=== PATIENT | female | born 1975 | race Caucasian/White ===

== ENCOUNTER 2017-07-30 20:24 | Emergency (ER) | payer BC, SELFPAY ==
[2017-07-30 20:24] VITALS: BP 129/89; PULSE 69; RESP 16; TEMP 36.8; O2SAT 100; BMI 25.8
--- NOTE | 2017-07-30 20:39 | ED.DCSUM_ITS ---
- ER Visit Summary Date of Service: 07/30/17 Chief Complaint: Dizziness History of Present Illness: The patient is a 41 F Zentz to the emergency department with dizziness. Patient states she has a remote history of vertigo. She states it happened about 3 years ago. She underwent significant outpatient testing including ENT evaluation and MRI. She had physical therapy and it seemed to resolve. Today, she bent over to lift a box. She states that she stood up quickly and got acutely dizzy. She describes it as vertiginous type dizziness. She states that she felt like she was going to pass out. She states she began to breathe quickly and began have tingling in her hands. She states the tingling went away, but she has been intermittently dizzy throughout the day. She said a few bouts of vomiting. She denies any trouble with speech or swallowing. She denies any change in gait. She denies any focal weakness. Physical Examination: Vital signs reviewed General: Well-nourished, well-developed Head: Normocephalic, atraumatic Eyes: Pupils equal and reactive, extraocular muscles intact Neck, supple, no lymphadenopathy Heart: Regular rate and rhythm Respiratory: No distress, clear bilaterally Abdomen: Soft, nontender, nondistended, no peritoneal signs Back: Nontender Extremities: Nontender, no edema, no cords Skin: Normal color no rash Neuro: Alert and oriented, no focal or lateralizing deficits Test Results: [] Emergency Department Course and Treatment: The patient has an examination that does seem consistent with a peripheral vertigo. She has a positive head impulse testing. She has rapid right beating nystagmus when looking to the extreme left. Her symptoms are preceded with rapid motion. She has a normal neurologic exam. She has no neck pain, history of connective tissue disorder, or recent trauma. I do not feel this represents a vertebral artery or basilar artery dissection. The patient states that she did well with physical therapy, but stopped going. She has had intermittent symptoms for the past 2 years. They seem to be acutely worsened today. The patient was treated with IV fluids , antiemetics, and Ativan with some improvement. I did obtain screening labs which were unremarkable. I do feel that this patient would benefit from outpatient ENT evaluation given her persistence of symptoms. She will be placed on a prednisone burst and meclizine. She will also be given antiemetics. She will be discharged home. Treatment Plan: [] Disposition: Discharge Impression: 1. Peripheral vertigo This note was generated with [employer] dictation software. It may contain incorrect words, spelling, and punctuation that were not noted in review of the chart prior to signing ED Disposition - Plan for ED Patient: Chief Complaint: Dizziness Instructions: ED BPV Vertigo Prescriptions: Ondansetron [Zofran Odt] 4 mg PO Q8H PRN PRN #10 tab PRN Reason: Nausea Meclizine HCl [Antivert] 25 mg PO TID PRN PRN #30 tab PRN Reason: Vertigo Prednisone 10 mg PO UD #33 tab Referrals: Da Peralta MD [STAFF PHYSICIAN] -
[2017-07-30] MEDS: Ondansetron 4 MG/2 ML Vial IV (20:44)
[2017-07-30] MEDS: 0.9% Normal Saline 1,000 ML 1000 ML IV (20:44)
[2017-07-30] MEDS: LORazepam 2 MG/ML Syringe 1 MG IV (20:45)
[2017-07-30 20:58] LABS: Absolute Lymphocyte Count 1.03 X10^3/ul (0.83-4.51); Basophil# 0.01 X10^3/uL; Basophil% 0.2 % (0-1); Eosinophil# 0.05 X10^3/uL; Eosinophils% 1.1 % (0-5); Hemoglobin 12.5 g/dl (12.0-15.0); Lymphocyte # 1.03 X10^3/ul (4.0); Lymphocyte % 23.1 % (19-41); Mean Corp Hgb Conc 32.9 g/gl (32-36); Mean Platelet Vol. 11.2 fl (6.2-12.0); Monocyte# 0.33 X10^3/uL; Monocyte% 7.4 % (0-10); Neutrophil # 3.04 X10^3/uL (2.7-7.7); Neutrophil % 68.2 % (47-70); Platelet Count 181 K/mm3 (150-450); RBC Distribution Width CV 13.4 % (11.6-14.6); RBC Distribution Width SD 41.9 fl (35.1-43.9); Red Blood Count 4.47 M/mm3 (4.2-5.4); White Blood Count 4.5 K/mm3 (4.4-11.0)
[2017-07-30 21:03] LABS: POSITIVE COUNT NO; POSITIVE DIFFERENTIAL NO; POSITIVE MORPHOLOGY NO
[2017-07-30 21:22] LABS: Anion Gap 9 (5-15); BUN 8 mg/dL (7-18); BUN/Creat Ratio 11.1 RATIO (10-20); Calcium,Total 8.4 mg/dL (8.5-10.1); Chloride 106 mmol/L (98-107); Creatinine, Serum 0.72 mg/dL (0.55-1.02); EST Glomerular Filtration Rate 93 mL/min (>60); Est Glom Filt Rate - Afr Amer 113 mL/min (>60); Estimated Creatinine Clearance 94.31 ml/min; Glucose 110 mg/dL (74-106); Potassium 3.6 mmol/L (3.5-5.1); Sodium Level 142 mmol/L (136-145)
[2017-07-30] MEDS: Meclizine 12.5 MG Tablet 25 MG PO (22:11)
[2017-07-30] MEDS: MethylPREDNISolone 125 MG/2 ML Vial IV (22:11)
[2017-07-30 22:17] VITALS: BP 103/61; PULSE 59; RESP 16; O2SAT 100
== END 2017-07-30 22:18 | disposition home or self-care (01) ==
LOC: ED 20:39
PROVIDERS: Emergency Provider Emergency Medicine
DX: H81.399 Other peripheral vertigo, unspecified ear (principal)
CPT/HCPCS: 80048; 85025; 96361; 96374; 96375; 99283; J2405

== ENCOUNTER 2017-10-22 16:48 | Emergency (ER) | payer BC, SELFPAY ==
[2017-10-22 16:49] VITALS: BP 136/71; PULSE 70; RESP 16; TEMP 36.1; O2SAT 99; BMI 26.8
--- NOTE | 2017-10-22 16:51 | EKG12_ITS ---
Test Reason : DIZZY Blood Pressure : / mmHG Vent. Rate : 078 BPM Atrial Rate : 078 BPM P-R Int : 164 ms QRS Dur : 114 ms QT Int : 418 ms P-R-T Axes : 057 035 046 degrees QTc Int : 476 ms Normal sinus rhythm Normal ECG Confirmed by KRIS SANTIZO, TYLER ([id number]), development editor BIBI MATTHEWS ([id number]) on 10/24/2017 1:54:48 PM Referred By: DC Confirmed By:TYLER PONCE MD
--- NOTE | 2017-10-22 17:18 | NURSING ---
NO OLD EKGS
[2017-10-22 17:47] LABS: Absolute Neutrophil Count 2.4 X10^3/uL (2.0-7.7); Basophil# 0.02 X10^3/uL; Basophil% 0.5 % (0-1); Eosinophil# 0.05 X10^3/uL; Eosinophils% 1.4 % (0-5); Hematocrit 35.9 % (37-47); Lymphocyte % 24.3 % (19-41); Mean Corp Hgb Conc 33.4 g/gl (32-36); Mean Corpuscular Hgb 28.6 pg (27.0-32.0); Mean Corpuscular Volume 85.5 fL (81-99); Mean Platelet Vol. 10.9 fl (6.2-12.0); Monocyte# 0.34 X10^3/uL; Monocyte% 9.2 % (0-10); Neutrophil # 2.39 X10^3/uL (2.7-7.7); Neutrophil % 64.6 % (47-70); Platelet Count 190 K/mm3 (150-450); RBC Distribution Width CV 13.4 % (11.6-14.6); RBC Distribution Width SD 41.7 fl (35.1-43.9); White Blood Count 3.7 K/mm3 (4.4-11.0)
[2017-10-22 17:50] LABS: POSITIVE COUNT NO; POSITIVE DIFFERENTIAL NO; POSITIVE MORPHOLOGY NO
[2017-10-22 17:57] LABS: Anion Gap 6 (5-15); BUN 13 mg/dL (7-18); BUN/Creat Ratio 17.8 RATIO (10-20); Calcium,Total 8.9 mg/dL (8.5-10.1); Chloride 101 mmol/L (98-107); Creatinine, Serum 0.73 mg/dL (0.55-1.02); EST Glomerular Filtration Rate 92 mL/min (>60); Est Glom Filt Rate - Afr Amer 112 mL/min (>60); Estimated Creatinine Clearance 93.02 ml/min; Glucose 99 mg/dL (74-106); Potassium 3.6 mmol/L (3.5-5.1); Sodium Level 138 mmol/L (136-145)
[2017-10-22 18:03] LABS: International Normalized Ratio 1.1; Prothrombin Time (Protime)PT. 13.8 SECONDS (11.7-14.9)
[2017-10-22 18:04] LABS: Partial Thromboplast Time 28.3 Seconds (24.1-36.2)
--- NOTE | 2017-10-22 19:03 | ED.DCSUM_ITS ---
- ER Visit Summary Date of Service: 10/22/17 Chief Complaint: Dizziness History of Present Illness: The patient is a 41 F with a history of vertigo. She has had 2 episodes in the last 3 days. The symptoms last for about 10 minutes, sometimes more. She describes it as the room spinning. She has also had some bilateral jaw pressure and hands tingling. She also reports a left- sided headache. She took meclizine with no improvement. She has been evaluated for vertigo in the past. She did have a prior MRI. She has been to therapy for this. She denies any speech changes, facial droop, vision changes, or unilateral weakness. Physical Examination: Afebrile and vital signs unremarkable. Head and neck atraumatic. Cranial nerves grossly intact. Heart regular rate and rhythm. Lungs clear. Skin appears normal in color without rash. Alert and oriented. Cranial nerves grossly intact. Normal strength and sensation in all extremities. No focal or lateralizing neurologic abnormal is grossly. Speech is normal. Test Results: Nursing ordered basic labs. Her white count was 3.7. BMP normal. Coags normal. Imaging not indicated. Emergency Department Course and Treatment: Patient has a history of vertigo with recurrent signs and symptoms. No new or red flag symptoms. Patient already tried meclizine with no improvement. She has a headache component on the left side and believes she has a history of migraines. She was treated with Compazine and Benadryl. Will reassess. On reassessment, the patient's headache and vertigo had improved. She had a restlessness in her legs. I suspect this is from the Compazine. There is nothing focal on reevaluation. This sounds like a peripheral vertigo. She has no new or different symptoms otherwise. Patient has seen Dr. Sandoval in the past and was referred for follow-up. She has meclizine at home. Treatment Plan: As above Disposition: Discharged Impression: 1. Peripheral vertigo This note was generated with [employer] dictation software. It may contain incorrect words, spelling, and punctuation that were not noted in review of the chart prior to signing ED Disposition - Plan for ED Patient: Chief Complaint: Dizziness Referrals: Care Physician,No Primary [Primary Care Provider] -
[2017-10-22 19:19] VITALS: BP 116/73; PULSE 53; RESP 17; O2SAT 100
[2017-10-22] MEDS: DiphenhydrAMINE 50 MG/ML Syringe 25 MG IV (19:22)
[2017-10-22] MEDS: 0.9% Normal Saline 1,000 ML 50 ML IV (19:22)
[2017-10-22] MEDS: proCHLORPERazine 10 MG/2 ML Vial IV (19:23)
--- NOTE | 2017-10-22 20:07 | ED.DEP ---
ED Disposition - Plan for ED Patient: Chief Complaint: Dizziness Instructions: ED Vertigo Unspecified Referrals: Burton Rajan MD [STAFF PHYSICIAN] -
[2017-10-22 20:21] VITALS: BP 134/75; PULSE 77; RESP 22; O2SAT 100
== END 2017-10-22 20:21 | disposition home or self-care (01) ==
LOC: ED 18:55
PROVIDERS: Emergency Provider Emergency Medicine
DX: H81.399 Other peripheral vertigo, unspecified ear (principal); R51 Headache
CPT/HCPCS: 80048; 85025; 85610; 85730; 93005; 96361; 96374; 96375; 99284; J7030

== ENCOUNTER 2018-01-01 08:09 | Observation (INO) | payer BC, SELFPAY ==
[2018-01-01] VITALS (7 sets, daily range): BP systolic 104–150; BP diastolic 64–91; PULSE 53–83; RESP 14–18; TEMP 36.2–36.8; O2SAT 98–100; BMI 25.8
--- NOTE | 2018-01-01 08:33 | CT_ITS ---
STUDY: CT ABDOMEN AND PELVIS WITH CONTRAST REASON FOR EXAM: Female, 42 years old. 3 day history of abdominal pain and bloody diarrhea. RADIATION DOSAGE (If Supplied By Facility): CTDIvol = ( 11.70 ) mGy, DLP = ( 632.61 ) mGycm TECHNIQUE: Transaxial images were obtained from the dome of the diaphragm to the symphysis pubis with oral contrast. 100mL ml of Isovue 300 contrast was administered. Sagittal and coronal images were reconstructed. Individualized dose optimization techniques were used for this CT. COMPARISON: None. FINDINGS: The visualized lung bases are unremarkable. The visualized portions of the heart are within normal limits. Scattered small hypodensities in the liver suggestive of small hepatic cysts. Normal gallbladder and extrahepatic biliary system. Normal spleen. Normal pancreas. Normal bilateral adrenal glands. Normal right kidney. Normal left kidney. Normal visualized stomach. Normal small intestine. There is diffuse thickening of the left hemicolon with increased markings in the surrounding peritoneal fat. This is suggestive of bone colitis. The appendix is visualized and appears normal. Normal abdominal aorta. Normal inferior vena cava. Normal retroperitoneum. Normal urinary bladder. Enlarged heterogeneous uterus suggestive of fibroid uterus. There is thickening of the endometrium measuring 3.1 cm. Normal abdominal wall. Small bilateral benign-appearing inguinal lymph nodes. Levoscoliosis. Straightening of the normal lumbar lordosis. This space narrowing and spondylosis at the L3-L4 level. CT/Abdomen/Pelvis WITH Contrast IMPRESSION: Findings in keeping with a colitis of the left hemicolon. Enlarged fibroid uterus and thickening of the endometrium. Electronically Signed: Seth Vivar MD at 10:55 EDT Tel [phone], Service support ,
[2018-01-01 09:11] LABS: Absolute Lymphocyte Count 0.55 X10^3/ul (0.83-4.51); Absolute Neutrophil Count 3.6 X10^3/uL (2.0-7.7); Basophil# 0.01 X10^3/uL; Basophil% 0.2 % (0-1); Eosinophil# 0.06 X10^3/uL; Eosinophils% 1.3 % (0-5); Hemoglobin 13.1 g/dl (12.0-15.0); Lymphocyte # 0.55 X10^3/ul (4.0); Lymphocyte % 12.1 % (19-41); Mean Corp Hgb Conc 33.6 g/gl (32-36); Mean Corpuscular Hgb 28.9 pg (27.0-32.0); Mean Corpuscular Volume 85.9 fL (81-99); Monocyte# 0.33 X10^3/uL; Monocyte% 7.3 % (0-10); Neutrophil # 3.59 X10^3/uL (2.7-7.7); Neutrophil % 79.1 % (47-70); Platelet Count 165 K/mm3 (150-450); RBC Distribution Width SD 40.9 fl (35.1-43.9); Red Blood Count 4.54 M/mm3 (4.2-5.4); White Blood Count 4.5 K/mm3 (4.4-11.0)
[2018-01-01 09:12] LABS: Differential Indicated SCAN CRITERIA MET; POSITIVE COUNT NO; POSITIVE DIFFERENTIAL YES; POSITIVE MORPHOLOGY NO
[2018-01-01 09:17] LABS: Anion Gap 9 (5-15); BUN 12 mg/dL (7-18); BUN/Creat Ratio 14.5 RATIO (10-20); Calcium,Total 8.7 mg/dL (8.5-10.1); Chloride 105 mmol/L (98-107); Creatinine, Serum 0.83 mg/dL (0.55-1.02); EST Glomerular Filtration Rate 80 mL/min (>60); Est Glom Filt Rate - Afr Amer 97 mL/min (>60); Estimated Creatinine Clearance 80.97 ml/min; Glucose 90 mg/dL (74-106); Potassium 3.5 mmol/L (3.5-5.1); Sodium Level 141 mmol/L (136-145)
[2018-01-01 09:17] LABS: Bacteria 0 SEEN /hpf (None Seen); Mucous, Urine 0 SEEN /hpf (<or=2+); Red Blood Cells-Urine 0 SEEN /hpf (0-5)
[2018-01-01 09:20] LABS: Color, Urine Yellow (Yellow); Glucose, Dipstick Normal (Normal); Ketone-Dipstick Negative (Negative); Leukocyte Esterase-Dipstick 25 /ul (Negative); Nitrite-Dipstick Negative (Negative); Occult Blood-Urine Negative /ul (Negative); Protein-Dipstick Negative (Negative); Urine Bilirubin Dipstick Negative (Negative); Urine Clarity Sl. Cloudy (Clear); Urine Urobilinogen Normal (Normal); Urine pH 6.5 (5.0 - 8.0)
[2018-01-01 09:28] LABS: Lactic Acid 1.8 mmol/L (0.4-2.0)
[2018-01-01 09:53] LABS: Pregnancy, Serum, hCG Quali. NEGATIVE Negative (0-9 Nonpreg)
[2018-01-01 09:56] LABS: Squamous Epithelial Cells - UA 0-5 SEEN /hpf (5-10); White Blood Cells 0-5 SEEN /hpf (0-5)
[2018-01-01] MEDS: 0.9% Normal Saline 1,000 ML 125 ML IV ×3 (10:20→21:26)
--- NOTE | 2018-01-01 11:11 | ED.DCSUM_ITS ---
- ER Visit Summary Date of Service: 01/01/18 Chief Complaint: [Rectal bleeding and abdominal pain] History of Present Illness: The patient is a 42 F [presents the emergency department complaint of rectal bleeding and abdominal pain that started yesterday. Patient noticed blood in the stool last night and she thought it was watery like diarrhea. Patient again had another episode this morning. Patient complains of lower abdominal pain with it. She has never had pain like this before. She denies any fevers. She denies nausea or vomiting. Patient denies any family history of inflammatory bowel disease. She denies urinary symptoms.] Physical Examination: [HEENT-PERRLA, EOMI. Cranial nerves II through XII grossly intact. TMs clear. Mucous membranes moist. No adenopathy. Cardiovascular-regular rate and rhythm without murmur or ectopy Lungs-clear to auscultation, chest wall stable without crepitus or subcu emphysema Abdomen-normoactive bowel sounds, soft. Patient has tenderness to palpation over the suprapubic and left lower quadrant region. There is no rebound, rigidity, or perineal signs. Rectal exam-no masses palpated. No fissures noted no hemorrhoids noted. No significant stool noted in the rectal vault however Hemoccult tested positive. Extremities-intact ?4, normal range of motion, normal pulses, atraumatic] Test Results: [CBC with differential obtained showing a 4.5, heme globin 13, hematocrit 39, platelets 165. Chemistries were normal. Urinalysis was normal. Lactate was normal at 1.8. Hemoccult was positive.] CT scan of the abdomen and pelvis with IV and p.o. contrast showed colitis of the left side of the colon. Emergency Department Course and Treatment: [She was even Cipro and Flagyl IV.] Treatment Plan: [Admit] Disposition: [Admit] Impression: [Colitis Lower GI bleed] This note was generated with [employer] dictation software. It may contain incorrect words, spelling, and punctuation that were not noted in review of the chart prior to signing ED Disposition - Plan for ED Patient: Chief Complaint: Diarrhea Referrals: Care Physician,No Primary [Primary Care Provider] -
--- NOTE | 2018-01-01 11:23 | NURSING ---
DR ELAINE FOLEY
--- NOTE | 2018-01-01 11:30 | NURSING ---
311 COLITIS, LOWER GI BLEED OBS ELAINE
[2018-01-01] MEDS: Ciprofloxacin 400 MG/200 ML BAG 200 MG IV ×2 (11:52→22:43)
--- NOTE | 2018-01-01 12:01 | PCM.HP.STD ---
Problem List (1) GI bleed Status: Acute (2) Colitis Status: Acute History of Present Illness Date of Admission: 01/01/18 Chief Complaint: GI bleed The patient is a 42 year old F presents with bright red blood per rectum. Symptoms began on the , in the evening. And today just presented as full blood. Patient states that she would have some abdominal cramps prior to the event and then would have blood the bleeding. Denies any blood clots. Has never had this before. Some nausea but no vomiting. No prior history of GI bleed with hematochezia, melena nor hematemesis. Patient presented to the emergency room and had normal vital signs, hemoglobin 13. CAT scan showed colitis of the descending colon. Patient received ofloxacin and metronidazole in the emergency room. [] Past Medical History Allergies acetaminophen [From Vicodin] Adverse Reaction (Verified 01/01/18 08:11) Low blood pressure codeine Adverse Reaction (Verified 01/01/18 08:11) Low blood pressure hydrocodone bitartrate [From Vicodin] Adverse Reaction (Verified 01/01/18 08:11) Low blood pressure Home Medications: Ambulatory Orders Medication Instructions Recorded Glucosamine HCl 1,500 mg PO DAILY 07/30/17 Meclizine HCl [Antivert] 25 mg PO TID PRN PRN #30 tab 07/30/17 Multivitamin [Multiple Vitamins] 1 each PO DAILY 07/30/17 Ondansetron [Zofran Odt] 4 mg PO Q8H PRN PRN #10 tab 07/30/17 Smoking Status: Never smoker Tobacco Use: Non-smoker Alcohol: None Drugs: None - *Family History Maternal History Items: Hypertension Review of Systems Constitutional: Denies: Chills, Fever, Weight Change Eyes: Denies: Blurred vision, Double vision HEENT: Denies: Head Aches, Sinus Congestion, Sinus Drainage Cardiovascular: Denies: Chest Pain, Palpitations Respiratory: Denies: Cough, Shortness of breath at rest, Sputum production Gastrointestinal: Reports: Abdominal Pain, Hematochezia, Nausea. Denies: Hematemesis, Melena, Vomiting Genitourinary: Denies: Dysuria Musculoskeletal: Denies: Joint Pain, Joint Tenderness Neurological: Denies: Numbness, Tingling, Focal weakness Psychiatric: Denies: Anxiety, Depression Hematologic/ Lymphatic: Denies: Easy Bruising, Easy Bleeding, Hx of blood clot Comment: All review of systems are negative except as mentioned in the history of present illness and the other review of systems. VTE Information - Inpt Only VTE Present on Admission: No VTE Mechan Device Prophylaxis: SCD's VTE Pharm Prophylaxis ordered?: No Reason prophylaxis not ordered:: Medical Contraindication Patient Problems: Active and Suspected Problems GI bleed (Acute) Colitis (Acute) - Physical Exam General: Alert, Cooperative, No apparent distress HEENT: Atraumatic, Normocephalic Oral: Moist Mucosa, No Gingival or Mucosal Lesions/ Ulcerations Neck: No Nodes, Thyroid Normal Size and Texture Lungs: Clear to auscultation, Normal air movement, No rhonchi, No wheeze Cardiovascular: Regular rate, Regular Rhythm, Normal S1, Normal S2, No murmurs Abdomen: Bowel Sounds Present, Soft, Non Tender, Non-Distended, No Hepato-splenomegaly Extremities: No edema, No Calf Tenderness Skin: No rashes, No breakdown Musculoskeletal: No Tenderness to Palpation of Joints or Extremities, No Muscle Wasting Neurological: Neuro grossly intact, Coordination normal Psych/Mental Status: Normal Affect, Appropriate Vital Signs Temp Pulse Resp BP Pulse Ox 36.2 C L 58 L 16 120/79 100 01/01/18 08:10 01/01/18 11:57 01/01/18 11:57 01/01/18 11:57 01/01/18 11:57 Laboratory Results - last 24 hr 01/01/18 01/01/18 01/01/18 08:50 08:50 08:50 WBC 4.5 RBC 4.54 Hgb 13.1 Hct 39.0 MCV 85.9 MCH 28.9 MCHC 33.6 RDW 13.0 RDW Differential 40.9 Plt Count 165 MPV 11.0 Immature Gran % (Auto) 0.000 Neut % (Auto) 79.1 H Lymph % (Auto) 12.1 L [place] % (Auto) 7.3 Eos % (Auto) 1.3 Baso % (Auto) 0.2 Absolute Neuts (auto) 3.6 Absolute Lymphs (auto) 0.55 L Total Counted Not Reportable Sodium 141 Potassium 3.5 Chloride 105 Carbon Dioxide 27.0 Anion Gap 9 BUN 12 Creatinine 0.83 Estim Creat Clear Calc 80.97 Est GFR (MDRD) Af Amer 97 Est GFR (MDRD) Non-Af 80 BUN/Creatinine Ratio 14.5 Glucose 90 Lactic Acid Calcium 8.7 Serum , Qual NEGATIVE Urine Color Urine Clarity Urine pH Ur Specific [place] Urine Protein Urine Glucose (UA) Urine Ketones Urine Occult Blood Urine Nitrite Urine Bilirubin Urine Urobilinogen Ur Leukocyte Esterase Urine RBC Urine WBC Ur Squamous Epith Cells Urine Bacteria Urine Mucus Blood Type Antibody Screen 01/01/18 01/01/18 01/01/18 08:50 09:13 09:20 WBC RBC Hgb Hct MCV MCH MCHC RDW RDW Differential Plt Count MPV Immature Gran % (Auto) Neut % (Auto) Lymph % (Auto) [place] % (Auto) Eos % (Auto) Baso % (Auto) Absolute Neuts (auto) Absolute Lymphs (auto) Total Counted Sodium Potassium Chloride Carbon Dioxide Anion Gap BUN Creatinine Estim Creat Clear Calc Est GFR (MDRD) Af Amer Est GFR (MDRD) Non-Af BUN/Creatinine Ratio Glucose Lactic Acid 1.8 Calcium Serum , Qual Urine Color Yellow Urine Clarity Sl. Cloudy Urine pH 6.5 Ur Specific [place] 1.010 Urine Protein Negative Urine Glucose (UA) Normal Urine Ketones Negative Urine Occult Blood Negative Urine Nitrite Negative Urine Bilirubin Negative Urine Urobilinogen Normal Ur Leukocyte Esterase 25 H Urine RBC 0 SEEN Urine WBC 0-5 SEEN Ur Squamous Epith Cells 0-5 SEEN Urine Bacteria 0 SEEN Urine Mucus 0 SEEN Blood Type O POSITIVE Antibody Screen NEGATIVE Clinical Impression(s) from Imaging Studies Abdomen/Pelvis CT 01/01/18 08:33 IMPRESSION: Findings in keeping with a colitis of the left hemicolon. Enlarged fibroid uterus and thickening of the endometrium. Electronically Signed: Seth Vivar MD at 10:55 EDT Tel [phone], Service support , Assessment/Plan All Active Problems GI bleed (Acute) Colitis (Acute) 1. GI bleed Patient currently hemodynamically stable Etiology could be colitis versus diverticulosis versus internal hemorrhoids Patient will require colonoscopy but this can be done on an outpatient basis Patient was explained that if she has refractory bleeding that she may require transfusions or even transfer to tertiary facility for coil embolization. 2. Possible colitis Patient will be put on ciprofloxacin and metronidazole empirically for possible infectious etiology Doubt ischemic given the lack of pain and a normal lactic acid Doubt inflammatory bowel as patient has never had a prior history of Crohn's disease or ulcerative colitis And I am also questioning the possibility of colitis on the CAT scan. As patient has really no abdominal pain subjectively nor clinically. 3. DVT prophylaxis with SCDs She will be monitored overnight to see how her response is regards to further bleeding and if she requires any additional therapies while she is here. If not, the plan would be for the patient be discharged to complete her course of antibiotics and to follow-up with gastroenterology or general surgery for colonoscopy as outpatient. Code Visit OBSV E&M: [id number] Initial observation care L3
--- NOTE | 2018-01-01 12:07 | HP.PCM_ITS ---
Problem List (1) GI bleed Status: Acute (2) Colitis Status: Acute History of Present Illness Date of Admission: 01/01/18 Chief Complaint: GI bleed The patient is a 42 year old F presents with bright red blood per rectum. Symptoms began on the , in the evening. And today just presented as full blood. Patient states that she would have some abdominal cramps prior to the event and then would have blood the bleeding. Denies any blood clots. Has never had this before. Some nausea but no vomiting. No prior history of GI bleed with hematochezia, melena nor hematemesis. Patient presented to the emergency room and had normal vital signs, hemoglobin 13. CAT scan showed colitis of the descending colon. Patient received ofloxacin and metronidazole in the emergency room. [] Past Medical History Allergies acetaminophen [From Vicodin] Adverse Reaction (Verified 01/01/18 08:11) Low blood pressure codeine Adverse Reaction (Verified 01/01/18 08:11) Low blood pressure hydrocodone bitartrate [From Vicodin] Adverse Reaction (Verified 01/01/18 08:11) Low blood pressure Home Medications: Ambulatory Orders Medication Instructions Recorded Glucosamine HCl 1,500 mg PO DAILY 07/30/17 Meclizine HCl [Antivert] 25 mg PO TID PRN PRN #30 tab 07/30/17 Multivitamin [Multiple Vitamins] 1 each PO DAILY 07/30/17 Ondansetron [Zofran Odt] 4 mg PO Q8H PRN PRN #10 tab 07/30/17 Smoking Status: Never smoker Tobacco Use: Non-smoker Alcohol: None Drugs: None - *Family History Maternal History Items: Hypertension Review of Systems Constitutional: Denies: Chills, Fever, Weight Change Eyes: Denies: Blurred vision, Double vision HEENT: Denies: Head Aches, Sinus Congestion, Sinus Drainage Cardiovascular: Denies: Chest Pain, Palpitations Respiratory: Denies: Cough, Shortness of breath at rest, Sputum production Gastrointestinal: Reports: Abdominal Pain, Hematochezia, Nausea. Denies: Hematemesis, Melena, Vomiting Genitourinary: Denies: Dysuria Musculoskeletal: Denies: Joint Pain, Joint Tenderness Neurological: Denies: Numbness, Tingling, Focal weakness Psychiatric: Denies: Anxiety, Depression Hematologic/ Lymphatic: Denies: Easy Bruising, Easy Bleeding, Hx of blood clot Comment: All review of systems are negative except as mentioned in the history of present illness and the other review of systems. VTE Information - Inpt Only VTE Present on Admission: No VTE Mechan Device Prophylaxis: SCD's VTE Pharm Prophylaxis ordered?: No Reason prophylaxis not ordered:: Medical Contraindication Patient Problems: Active and Suspected Problems GI bleed (Acute) Colitis (Acute) - Physical Exam General: Alert, Cooperative, No apparent distress HEENT: Atraumatic, Normocephalic Oral: Moist Mucosa, No Gingival or Mucosal Lesions/ Ulcerations Neck: No Nodes, Thyroid Normal Size and Texture Lungs: Clear to auscultation, Normal air movement, No rhonchi, No wheeze Cardiovascular: Regular rate, Regular Rhythm, Normal S1, Normal S2, No murmurs Abdomen: Bowel Sounds Present, Soft, Non Tender, Non-Distended, No Hepato- splenomegaly Extremities: No edema, No Calf Tenderness Skin: No rashes, No breakdown Musculoskeletal: No Tenderness to Palpation of Joints or Extremities, No Muscle Wasting Neurological: Neuro grossly intact, Coordination normal Psych/Mental Status: Normal Affect, Appropriate Vital Signs Temp Pulse Resp BP Pulse Ox 36.2 C L 58 L 16 120/79 100 01/01/18 08:10 01/01/18 11:57 01/01/18 11:57 01/01/18 11:57 01/01/18 11:57 Laboratory Results - last 24 hr 01/01/18 01/01/18 01/01/18 08:50 08:50 08:50 WBC 4.5 RBC 4.54 Hgb 13.1 Hct 39.0 MCV 85.9 MCH 28.9 MCHC 33.6 RDW 13.0 RDW Differential 40.9 Plt Count 165 MPV 11.0 Immature Gran % (Auto) 0.000 Neut % (Auto) 79.1 H Lymph % (Auto) 12.1 L [place] % (Auto) 7.3 Eos % (Auto) 1.3 Baso % (Auto) 0.2 Absolute Neuts (auto) 3.6 Absolute Lymphs (auto) 0.55 L Total Counted Not Reportable Sodium 141 Potassium 3.5 Chloride 105 Carbon Dioxide 27.0 Anion Gap 9 BUN 12 Creatinine 0.83 Estim Creat Clear Calc 80.97 Est GFR (MDRD) Af Amer 97 Est GFR (MDRD) Non-Af 80 BUN/Creatinine Ratio 14.5 Glucose 90 Lactic Acid Calcium 8.7 Serum , Qual NEGATIVE Urine Color Urine Clarity Urine pH Ur Specific [place] Urine Protein Urine Glucose (UA) Urine Ketones Urine Occult Blood Urine Nitrite Urine Bilirubin Urine Urobilinogen Ur Leukocyte Esterase Urine RBC Urine WBC Ur Squamous Epith Cells Urine Bacteria Urine Mucus Blood Type Antibody Screen 01/01/18 01/01/18 01/01/18 08:50 09:13 09:20 WBC RBC Hgb Hct MCV MCH MCHC RDW RDW Differential Plt Count MPV Immature Gran % (Auto) Neut % (Auto) Lymph % (Auto) [place] % (Auto) Eos % (Auto) Baso % (Auto) Absolute Neuts (auto) Absolute Lymphs (auto) Total Counted Sodium Potassium Chloride Carbon Dioxide Anion Gap BUN Creatinine Estim Creat Clear Calc Est GFR (MDRD) Af Amer Est GFR (MDRD) Non-Af BUN/Creatinine Ratio Glucose Lactic Acid 1.8 Calcium Serum , Qual Urine Color Yellow Urine Clarity Sl. Cloudy Urine pH 6.5 Ur Specific [place] 1.010 Urine Protein Negative Urine Glucose (UA) Normal Urine Ketones Negative Urine Occult Blood Negative Urine Nitrite Negative Urine Bilirubin Negative Urine Urobilinogen Normal Ur Leukocyte Esterase 25 H Urine RBC 0 SEEN Urine WBC 0-5 SEEN Ur Squamous Epith Cells 0-5 SEEN Urine Bacteria 0 SEEN Urine Mucus 0 SEEN Blood Type O POSITIVE Antibody Screen NEGATIVE Clinical Impression(s) from Imaging Studies Abdomen/Pelvis CT 01/01/18 08:33 IMPRESSION: Findings in keeping with a colitis of the left hemicolon. Enlarged fibroid uterus and thickening of the endometrium. Electronically Signed: Seth Vivar MD at 10:55 EDT Tel [phone], Service support , Assessment/Plan All Active Problems GI bleed (Acute) Colitis (Acute) 1. GI bleed * Patient currently hemodynamically stable * Etiology could be colitis versus diverticulosis versus internal hemorrhoids * Patient will require colonoscopy but this can be done on an outpatient basis * Patient was explained that if she has refractory bleeding that she may require transfusions or even transfer to tertiary facility for coil embolization. 2. Possible colitis * Patient will be put on ciprofloxacin and metronidazole empirically for possible infectious etiology * Doubt ischemic given the lack of pain and a normal lactic acid * Doubt inflammatory bowel as patient has never had a prior history of Crohn's disease or ulcerative colitis * And I am also questioning the possibility of colitis on the CAT scan. As patient has really no abdominal pain subjectively nor clinically. 3. DVT prophylaxis with SCDs She will be monitored overnight to see how her response is regards to further bleeding and if she requires any additional therapies while she is here. If not , the plan would be for the patient be discharged to complete her course of antibiotics and to follow-up with gastroenterology or general surgery for colonoscopy as outpatient. Code Visit OBSV E&M: [id number] Initial observation care L3
[2018-01-01] MEDS: Acetaminophen 325 MG Tablet 650 MG PO (20:20)
[2018-01-02] MEDS: Acetaminophen 325 MG Tablet 650 MG PO (05:47)
[2018-01-02] MEDS: 0.9% Normal Saline 1,000 ML 125 ML IV (05:51)
[2018-01-02 05:52] VITALS: BP 126/75; PULSE 61; RESP 18; TEMP 36.8; O2SAT 98
[2018-01-02 06:27] LABS: Absolute Lymphocyte Count 0.95 X10^3/ul (0.83-4.51); Absolute Neutrophil Count 1.8 X10^3/uL (2.0-7.7); Basophil# 0.01 X10^3/uL; Basophil% 0.3 % (0-1); Eosinophil# 0.14 X10^3/uL; Eosinophils% 4.4 % (0-5); Hematocrit 35.4 % (37-47); Lymphocyte # 0.95 X10^3/ul (4.0); Lymphocyte % 30.1 % (19-41); Mean Corp Hgb Conc 33.9 g/gl (32-36); Mean Corpuscular Hgb 29.4 pg (27.0-32.0); Mean Corpuscular Volume 86.8 fL (81-99); Mean Platelet Vol. 11.6 fl (6.2-12.0); Monocyte# 0.28 X10^3/uL; Monocyte% 8.9 % (0-10); Neutrophil # 1.78 X10^3/uL (2.7-7.7); Neutrophil % 56.3 % (47-70); Platelet Count 160 K/mm3 (150-450); RBC Distribution Width CV 12.6 % (11.6-14.6); RBC Distribution Width SD 39.1 fl (35.1-43.9); Red Blood Count 4.08 M/mm3 (4.2-5.4); White Blood Count 3.2 K/mm3 (4.4-11.0)
[2018-01-02 06:30] LABS: POSITIVE COUNT NO; POSITIVE DIFFERENTIAL NO; POSITIVE MORPHOLOGY NO
[2018-01-02 06:44] LABS: Anion Gap 7 (5-15); BUN 4 mg/dL (7-18); BUN/Creat Ratio 6.6 RATIO (10-20); Calcium,Total 8.2 mg/dL (8.5-10.1); Chloride 111 mmol/L (98-107); EST Glomerular Filtration Rate 115 mL/min (>60); Est Glom Filt Rate - Afr Amer 139 mL/min (>60); Estimated Creatinine Clearance 112.01 ml/min; Glucose 91 mg/dL (74-106); Potassium 3.9 mmol/L (3.5-5.1); Sodium Level 146 mmol/L (136-145)
[2018-01-02] MEDS: Multivitamins,Therapeutic Tablet 1 TABLET PO (08:56)
[2018-01-02] MEDS: Ciprofloxacin 400 MG/200 ML BAG 200 MG IV (09:39)
--- NOTE | 2018-01-02 11:07 | DCINST_ITS ---
- Discharge Diagnoses Current Active Problems: Current Active and Chronic Problems GI bleed (Acute) Colitis (Acute) You will use the following diet at home:: No restrictions Your food should be the consistency of: Regular Your liquids should be the consistency of: Regular/Thin Discharge Activity: Return to Normal Activity Call your doctor if you observe: - - abdominal pain. recurrent gastroinestinal bleed. Allergies/Adverse Reactions: Allergies acetaminophen [From Vicodin] Adverse Reaction (Verified 01/01/18 08:11) Low blood pressure codeine Adverse Reaction (Verified 01/01/18 08:11) Low blood pressure hydrocodone bitartrate [From Vicodin] Adverse Reaction (Verified 01/01/18 08:11) Low blood pressure Medications to take at Discharge Glucosamine HCl 1,500 mg PO DAILY 07/30/17 Meclizine HCl [Antivert] 25 mg PO TID PRN PRN #30 tab 07/30/17 Multivitamin [Multiple Vitamins] 1 each PO DAILY 07/30/17 Ondansetron [Zofran Odt] 4 mg PO Q8H PRN PRN #10 tab 07/30/17 Ciprofloxacin [Cipro] 500 mg PO BID #18 tab 01/02/18 Metronidazole [Flagyl] 500 mg PO Q8H #27 tab 01/02/18 The following prescriptions were given: Metronidazole [Flagyl] 500 mg PO Q8H #27 tab Ciprofloxacin [Cipro] 500 mg PO BID #18 tab Primary Care Physician: Care Physician,No Primary [Primary Care Provider] - Within 2 Weeks Test Results: Test results from this visit will be discussed in further detail at your follow- up appointment, if applicable. Please Follow Up With: Jeffrey Starr MD - Gastroenterology When: 1-2 months, call for appointment Proposed Discharge Date: 01/02/18
--- NOTE | 2018-01-02 11:09 | DS.PCM_ITS ---
Discharge Date and Diagnosis - Problem List Patient Problems: Active and Suspected Problems GI bleed (Acute) Colitis (Acute) Date of Admission: 01/01/18 Date of Discharge: 01/02/18 - Primary Discharge Diagnosis Active and Suspected Problems GI bleed (Acute) Colitis (Acute) Hospital Course and Treatment Imaging Results: Clinical Impression(s) from Imaging Studies Abdomen/Pelvis CT 01/01/18 08:33 IMPRESSION: Findings in keeping with a colitis of the left hemicolon. Enlarged fibroid uterus and thickening of the endometrium. Electronically Signed: Seth Vivar MD at 10:55 EDT Tel [phone], Service support , Operations: None Procedures: None Summary of Care Provided: The patient is a 42 year old F with a lower GI bleed. CAT scan suggested left- sided colitis. Patient started on empiric antibiotics with ciprofloxacin and Flagyl. Patient's bleeding has stopped today but did have scant blood in her me with a mucousy stool but no cindy bleeding that she had previously. Plan is for the patient follow-up with gastroenterology for further evaluation. Question if this is actual colitis or not sure this is just perhaps a diverticular bleed. Nonetheless, patient will need follow-up with gastroenterology. 1. GI bleed * Patient currently hemodynamically stable * Etiology could be colitis versus diverticulosis versus internal hemorrhoids * Patient will require colonoscopy but this can be done on an outpatient basis * Patient was explained that if she has refractory bleeding that she may require transfusions or even transfer to tertiary facility for coil embolization. 2. Possible colitis * Patient will be put on ciprofloxacin and metronidazole empirically for possible infectious etiology * Doubt ischemic given the lack of pain and a normal lactic acid * Doubt inflammatory bowel as patient has never had a prior history of Crohn's disease or ulcerative colitis * And I am also questioning the possibility of colitis on the CAT scan. As patient has really no abdominal pain subjectively nor clinically.[] Physical exam: Patient is no acute distress and afebrile. Heart is regular rate and rhythm plus S1-S2 without murmur disability manager or rubs. Lungs are clear to auscultation bilaterally. Abdomen is soft nontender, nondistended with normal bowel sounds. Discharge Diet: No Restrictions Discharge Activity: Return to Normal Activity Call your doctor if you observe: - - abdominal pain. recurrent gastroinestinal bleed. Home Medications: Medications to take at Discharge Glucosamine HCl 1,500 mg PO DAILY 07/30/17 Meclizine HCl [Antivert] 25 mg PO TID PRN PRN #30 tab 07/30/17 Multivitamin [Multiple Vitamins] 1 each PO DAILY 07/30/17 Ondansetron [Zofran Odt] 4 mg PO Q8H PRN PRN #10 tab 07/30/17 Ciprofloxacin [Cipro] 500 mg PO BID #18 tab 01/02/18 Metronidazole [Flagyl] 500 mg PO Q8H #27 tab 01/02/18 Following Prescrptions Were Given to Patient: Metronidazole [Flagyl] 500 mg PO Q8H #27 tab Ciprofloxacin [Cipro] 500 mg PO BID #18 tab Primary Care Physician: Care Physician,No Primary [Primary Care Provider] - Within 2 Weeks Please Follow Up With: Jeffrey Starr MD - Gastroenterology When: 1-2 months, call for appointment Disposition: Home Minutes spent on discharge:: 28 Patient Condition:: Good Medical Necessity - Tobacco Use Smoking Status: Never smoker Tobacco Use: Non-smoker Meaningful Use Info Meaningful Use Diagnoses (Choose all that apply): None applicable Code Visit OBSV E&M: 57364 Observation care discharge
[2018-01-02 12:02] VITALS: BP 123/72; PULSE 57; RESP 16; TEMP 36.8; O2SAT 98
== END 2018-01-02 12:16 | disposition home or self-care (01) ==
LOC: ED 08:36 → MS3 11:33
PROVIDERS: Emergency Provider Emergency Medicine
DX: K62.5 Hemorrhage of anus and rectum (principal)
CPT/HCPCS: 36415; 74177; 80048; 81001; 82274; 83605; 84703; 85025; 86850; 86900; 96361; 96365; 96366; 96367; 99218; 99285; J7030; J7050; Q9967; A4216; G0378; J0744

== ENCOUNTER → 2018-01-22 11:24 | Outpatient (CLI) | payer BC, SELFPAY | PROVIDERS: Family Provider Family Medicine; PCP Family Medicine; Visit Provider Family Medicine | DX: R00.2 Palpitations (principal) | CPT/HCPCS: 93225; 93226 ==

== ENCOUNTER 2018-02-27 11:10 | Day surgery (SDC) | payer BC, SELFPAY ==
--- NOTE | 2018-02-24 16:21 | EKG12_ITS ---
Test Reason : PREOP Blood Pressure : / mmHG Vent. Rate : 059 BPM Atrial Rate : 059 BPM P-R Int : 162 ms QRS Dur : 110 ms QT Int : 404 ms P-R-T Axes : 052 071 057 degrees QTc Int : 399 ms Sinus bradycardia Possible Left atrial enlargement Incomplete right bundle branch block Borderline ECG Confirmed by JANELL SANTIZO, DUDLEY ([id number]), editor map BIBI MATTHEWS ([id number]) on 02/25/2018 3:15:12 PM Referred By: Lorena Be Confirmed By:DUDLEY MACIEL MD
[2018-02-24 17:12] LABS: Hematocrit 36.7 % (37-47); Hemoglobin 12.3 g/dl (12.0-15.0); Mean Corp Hgb Conc 33.5 g/gl (32-36); Mean Corpuscular Hgb 29.2 pg (27.0-32.0); Mean Corpuscular Volume 87.2 fL (81-99); Mean Platelet Vol. 11.8 fl (6.2-12.0); Platelet Count 191 K/mm3 (150-450); RBC Distribution Width CV 12.2 % (11.6-14.6); RBC Distribution Width SD 38.2 fl (35.1-43.9); Red Blood Count 4.21 M/mm3 (4.2-5.4)
[2018-02-24 17:24] LABS: Internal QC Validated? YES +Cl - CLEAR BKGD; Pregnancy, Urine Negative Negative
[2018-02-24 17:29] LABS: Scan Indicated on CBC? Y/N NO
[2018-02-27] VITALS (12 sets, daily range): BP systolic 95–119; BP diastolic 62–71; PULSE 45–73; RESP 16; TEMP 36.4–36.8; O2SAT 98–100; BMI 25.9
--- NOTE | 2018-02-27 12:50 | EMB_PTH ---
PATIENT: CHRIS HARRIS LOC: [facility] [place] U#:[id number] AGE/SX: 42/F ROOM: RE02/27/[address]: Dr. Lorena Be DO : 1975 BED: DIS: 02/27/2018 SPEC #: [id number] RECD: 02/27/18 15:56 STATUS: JOSÉ JUN #: [id number] JEREMIAS: 02/27/18 12:[address]: Lorena Be DEPT: SURGICAL PATHOLOGY RECD BY: Adonay Harmon ENTERED: 02/28/18 13:37 SP TYPE: ENDOM BX/C BALDEMAR DR: Dr. Vinod Pike MD Tissues: Endometrium, NOS Procedures: Surgery Specimen Level IV HEADER OPERATION: Hysteroscopy, dilation and curettage, Jenifer, ablation PRE-OP DIAGNOSIS: Menorrhagia TISSUE SUBMITTED: Endometrial curettings MICROSCOPIC DIAGNOSIS Endometrial curettings: Dyschronous endometrium, consisting of proliferative and secretory endometrium with glandular and stromal breakdown. RYAN:heike 03/03/18 MICROSCOPIC DESCRIPTION Slides are reviewed. GROSS DESCRIPTION Received in fixative is one container labeled with the patient's name and designated endometrial curettings. The specimen consists of multiple fragments of castaneda-pink hemorrhagic soft tissue that in aggregate measure 3 x 2.5 x 0.3 cm. The entire specimen is submitted in one cassette. / RYAN:heike 02/28/18 TC:5 CPT: 58077
--- NOTE | 2018-02-27 14:20 | DCINST_ITS ---
Discharge Diet: No Restrictions Discharge Activity: May not drive while taking narcotic pain medications., May Shower, - - No tub baths Return to work on:: 03/06/18 May resume sexual activity in: 1-2 weeks Weight Bearing Status: Weight bearing as tolerated Lifting Restrictions: None Call your doctor if you observe: Fever of 101 or Higher, Inability to urinate, Inability to have a bowel movement, Using more than one pad per hour, Shortness of breath, Dizziness, Chest pain, Increased palpitations (irregular heartbeat), Calf discomfort, Uncontrolled pain Allergies/Adverse Reactions: Allergies metronidazole Allergy (Verified 02/21/18 15:47) Other CAUSES DIZZINESS codeine Adverse Reaction (Verified 02/21/18 15:47) Low blood pressure hydrocodone bitartrate [From Vicodin] Adverse Reaction (Verified 02/21/18 15:47) Low blood pressure Medications to take at Discharge Glucosamine HCl 1,500 mg PO DAILY 07/30/17 Meclizine HCl [Antivert] 25 mg PO TID PRN PRN #30 tab 07/30/17 Multivitamin [Multiple Vitamins] 1 each PO DAILY 07/30/17 Omeprazole Magnesium [Prilosec Otc] 20 mg PO DAILY 02/21/18 Primary Care Physician: Vinod Pike MD [Primary Care Provider] - Test Results: Test results from this visit will be discussed in further detail at your follow- up appointment, if applicable. Please Follow Up With: Lorena Be DO When: 1-2 weeks
--- NOTE | 2018-02-27 14:21 | PCM.OP.BLANK ---
Problem List (1) Menorrhagia Status: Acute Operative Report Date of Procedure: 02/27/18 Procedure: Hysteroscopy, dilation and curettage, Jenifer ablation Surgeon: Lorena Be DO Anesthesia: MAC Preop diagnosis: Menorrhagia Postop diagnosis: Menorrhagia Estimated blood loss: Minimal, less than 50 cc Specimens removed: Endometrial curettings Complications: None Findings: Normal appearing uterine cavity Indications: Patient is a 42-year-old female who presented with menorrhagia. An endometrial biopsy that was benign. She had a normal Pap smear and a normal TSH. Pelvic ultrasound showed multiple small fibroids, the largest was measuring 3 cm. The fibroids were intramural. Otherwise a normal ultrasound. She has a history of a section, and stated that it was not a classical section. She also has a history of a tubal ligation. Discussed conservative treatment options and the patient declined. Discussed ablation and the risks, benefits, as well as alternatives of the ablation. Patient desired to proceed with an ablation. Patient was consented. Procedure: Patient was taken to the operating room where MAC anesthesia was found to be adequate. She was prepped and draped in the usual sterile manner in dorsal lithotomy position using yellowfin stirrups. Bimanual exam noted a midline, mobile, nonenlarged uterus. A weighted speculum was placed in the vagina to expose the anterior lip of the cervix. The anterior lip of the cervix was grasped with a single-tooth tenaculum. The uterus sounded to 10 cm. The cervical length was 4 cm. The cervix was progressively dilated to accommodate the hysteroscope. The hysteroscope was then introduced into the uterine cavity and the uterus was distended with normal saline fluid. The cavity was examined and no polyps or fibroids were noted, and the cavity was normal. Both ostia were visualized. The scope was removed. The Jenifer device was introduced into the cavity after being set to the correct cavity length. The device passed the cavity assessment. After completion of burning, the Jenifer device was removed from the cavity. The tenaculum was removed from the cervix and hemostasis was noted. The weighted speculum was removed from the vagina. Instrument counts were correct. The patient was taken to the recovery room in stable condition.
== END 2018-02-27 16:57 | disposition home or self-care (01) ==
LOC: SDC 11:10 → AC 11:12
PROVIDERS: Family Provider Family Medicine; PCP Family Medicine; Referring Provider Obstetrics & Gynecology; Visit Provider Obstetrics & Gynecology
PROC: 0U5B8ZZ Destruction of Endometrium, Via Natural or Artificial Opening Endoscopic (ICD-10-PCS; CPT 58558; principal; 2018-02-27 12:35)
DX: N92.0 Excessive and frequent menstruation with regular cycle (principal); D25.1 Intramural leiomyoma of uterus; K21.9 Gastro-esophageal reflux disease without esophagitis; G25.81 Restless legs syndrome; G43.909 Migraine, unspecified, not intractable, without status migrainosus; Z79.899 Other long term (current) drug therapy
CPT/HCPCS: 00952; 58563; 36415; 81025; 85027; 86850; 86900; 88305; 93005; J7120; J2405

== ENCOUNTER 2018-11-22 17:47 | Emergency (ER) | payer BC, SELFPAY ==
[2018-02-27 11:45] VITALS: BMI 25.9
[2018-11-22 17:48] VITALS: BP 120/86; PULSE 86; RESP 16; TEMP 36.6; O2SAT 100; BMI 25.1
--- NOTE | 2018-11-22 18:05 | EKG12_ITS ---
Test Reason : EPIGASTRIC PAIN Blood Pressure : / mmHG Vent. Rate : 064 BPM Atrial Rate : 064 BPM P-R Int : 144 ms QRS Dur : 106 ms QT Int : 392 ms P-R-T Axes : 049 053 047 degrees QTc Int : 404 ms Normal sinus rhythm Incomplete right bundle branch block Borderline ECG Confirmed by JANELL SANTIZO, DUDLEY ([id number]), book or script editor BIBI MATTHEWS ([id number]) on 11/24/2018 1:39:24 PM Referred By: NIRU Confirmed By:DUDLEY MACIEL MD
--- NOTE | 2018-11-22 18:12 | ED.VISSUMM ---
- ER Visit Summary Date of Service: 11/22/18 Chief Complaint: Epigastric pain History of Present Illness: The patient is a 42 F who presents with epigastric pain that began today. Patient states the pain is burning and tightness over the epigastric area. Patient states the pain is waxing and waning. Patient states the pain is worse with eating and with laying flat. Patient admits to some nausea but denies any vomiting. Patient denies any diarrhea, melena, or hematochezia. Patient denies any dysuria hematuria. Patient denies any abnormal vaginal bleeding or discharge. Physical Examination: Vital signs are stable. Patient is afebrile. Patient is in no acute distress. Oral mucosa is pink and moist. Neck is supple. Trachea is midline. There is no JVD noted. Heart was regular rate and rhythm. Lungs are clear and equal bilaterally. Abdomen is soft. Bowel sounds are normal. There is some mild epigastric tenderness. There is no rebound or guarding noted. Cranial nerves II through XII are intact. There are no focal motor or sensory deficits noted. Test Results: EKG showed a normal sinus rhythm with a rate of 64. There are no acute ST or T wave changes. There is an incomplete right bundle branch block pattern noted. This was unchanged compared to previous EKG dated 02/24/2018. CBC, comprehensive metabolic profile, troponin, and lipase were obtained and were all within normal limits. Emergency Department Course and Treatment: Patient was given a GI cocktail here. Patient was feeling better on reevaluation. Patient was advised that this is most likely GERD. Patient was given a prescription for Prilosec. Patient was instructed to eat a bland diet. Patient was instructed to follow-up with her primary care physician in 5 to 7 days. Patient understood and was agreeable with the plan. All questions were answered. Disposition: Discharge home Impression: Gastroesophageal reflux disease This note was generated with [employer] dictation software. It may contain incorrect words, spelling, and punctuation that were not noted in review of the chart prior to signing ED Disposition - Plan for ED Patient: Disposition: Home or Assisted Living Diagnosis: GERD (gastroesophageal reflux disease) Instructions: GERD (Adult) Prescriptions: Omeprazole [Prilosec] 20 mg PO DAILY #30 cap Prescription Printed Referrals: Vinod Pike MD [Primary Care Provider] - 5-7 Days
[2018-11-22 18:36] LABS: Absolute Lymphocyte Count 1.08 X10^3/uL (0.83-4.51); Absolute Neutrophil Count 4.7 X10^3/uL (2.0-7.7); Basophil# 0.03 X10^3/uL; Basophil% 0.5 % (0-1); Eosinophil# 0.07 X10^3/uL; Eosinophils% 1.1 % (0-5); Hematocrit 43.2 % (37-47); Hemoglobin 14.8 g/dL (12.0-15.0); Lymphocyte # 1.08 X10^3/ul (4.0); Lymphocyte % 16.8 % (19-41); Mean Corp Hgb Conc 34.3 g/dL (32-36); Mean Corpuscular Hgb 30.2 pg (27.0-32.0); Mean Corpuscular Volume 88.2 fL (81-99); Mean Platelet Vol. 11.5 fl (6.2-12.0); Monocyte# 0.55 X10^3/uL; Monocyte% 8.6 % (0-10); NRBC Flagged by Analyzer 0 % (0-5); Neutrophil # 4.69 X10^3/uL (2.7-7.7); Neutrophil % 72.8 % (47-70); Platelet Count 170 K/mm3 (150-450); RBC Distribution Width CV 11.9 % (11.6-14.6); RBC Distribution Width SD 38.3 fl (35.1-43.9); White Blood Count 6.4 K/mm3 (4.4-11.0)
[2018-11-22] MEDS: Mag Hydrox/Al Hydrox/Simeth 30 ML UDC PO (18:53)
[2018-11-22 18:54] LABS: ALB/GLOB Ratio 1.1 RATIO (0.9-2.4); AST(SGOT) 14 U/L (15-37); Alanine Aminotransfer ALT/SGPT 18 U/L (13-56); Albumin, Serum 3.8 g/dL (3.2-5.0); Alkaline Phosphatase 47 U/L (45-117); Anion Gap 3 (5-15); BUN 11 mg/dL (7-18); BUN/Creat Ratio 14.8 RATIO (10-20); Calcium,Total 8.8 mg/dL (8.5-10.1); Chloride 106 mmol/L (98-107); Creatinine, Serum 0.74 mg/dL (0.55-1.02); EST Glomerular Filtration Rate 90 mL/min (>60); Est Glom Filt Rate - Afr Amer 108 mL/min (>60); Estimated Creatinine Clearance 90.82 ml/min; Globulin 3.6 g/dL (2.2-4.2); Glucose 107 mg/dL (74-106); Lipase 107 U/L (73-393); Potassium 3.6 mmol/L (3.5-5.1); Protein, Total 7.4 g/dL (6.4-8.2); Sodium Level 137 mmol/L (136-145)
[2018-11-22 18:58] VITALS: BP 118/81; PULSE 72; RESP 13; O2SAT 100
[2018-11-22 20:00] VITALS: BP 124/78; PULSE 67; RESP 20; O2SAT 100
== END 2018-11-22 20:01 | disposition home or self-care (01) ==
PROVIDERS: Emergency Provider Emergency Medicine; Family Provider Family Medicine; PCP Family Medicine
DX: K21.9 Gastro-esophageal reflux disease without esophagitis (principal); I45.10 Unspecified right bundle-branch block; G43.909 Migraine, unspecified, not intractable, without status migrainosus
CPT/HCPCS: 80053; 83690; 84484; 85025; 93005; 99285

== ENCOUNTER → 2019-12-17 10:54 | Outpatient (CLI) | payer BC, SELFPAY ==
--- NOTE | 2019-12-17 11:13 | VDLE_ITS ---
Reason For Study: Pain and swelling RIGHT GSV is normal. CFV is compressible, spontaneous, phasic, competent and demonstrates normal augmentation. FV is compressible, spontaneous, phasic, competent and demonstrates normal augmentation. POP V is compressible, spontaneous, phasic, competent and demonstrates normal augmentation. T/P Trunk is compressible. PTV is compressible. RT PerV is compressible. Nonvascularized structure noted in the popliteal fossa measuring approximently 0.58 x 1.46 x 3.88 cm. Nonvascularized structure noted in the proximal calf muscle measuring approximently 1.47 x 2.85 x 4.5 cm. Procedure Exam performed in department. A preliminary report was called and/or faxed to Cristino Sims. Interpretation Summary There is no evidence of right lower extremity deep vein thrombosis. Right great saphenous vein appears patent and compressible segmentally. Nonvascularized right popliteal fossa 0.58 x 1.46 x 3.88 cm structure Nonvascularized right proximal calf 1.47 x 2.85 x 4.5 cm structure Because of the complexities of these 2 structures clinical correlation would be appropriate, ie: previous surgery/trauma Ordering Physician: Cristino Sims Referring Physician: Vinod Pike Performed By: Marcie Rutherford RVT
== END ==
PROVIDERS: PCP Family Medicine; Visit Provider Family Medicine
DX: M79.661 Pain in right lower leg (principal); M79.89 Other specified soft tissue disorders
CPT/HCPCS: 93971